=== PATIENT | female | born 1950 | race Caucasian/White ===

== ENCOUNTER 2023-11-12 18:25 | Emergency (ER) | payer MEDICARE, SELFPAY ==
[2023-11-12] VITALS (9 sets, daily range): BP systolic 176–209; BP diastolic 85–108; PULSE 60–73; RESP 16–22; TEMP 36.5–36.9; O2SAT 96–98; BMI 30.7
--- NOTE | 2023-11-12 18:34 | ECG_ITS ---
APPROVED REPORT Exam: Resting ECG HR:75 bpm ECG Measurements Heart Rate 75 AXES HI 149 P 53 QRSd 84 QRS 48 QT 396 T 58 QTc 425 Conclusion SINUS RHYTHM NORMAL ECG Electronically signed by : LUCERO ROCHE, 11/12/2023 23:51:59
--- NOTE | 2023-11-12 18:37 | CT_ITS ---
PROCEDURE INFORMATION: Exam: CT Head Without Contrast Exam date and time: 11/12/2023 6:55 PM Age: 73 years old Clinical indication: Pain; Headache; Additional info: Headache, severe HTN TECHNIQUE: Imaging protocol: Computed tomography of the head without contrast. Radiation optimization: All CT scans at this facility use at least one of these dose optimization techniques: automated exposure control; mA and/or kV adjustment per patient size (includes targeted exams where dose is matched to clinical indication); or iterative reconstruction. COMPARISON: No relevant prior studies available. FINDINGS: Brain: Age-related involutional changes and chronic microvascular ischemic disease. No evidence for acute transcortical infarct. No mass effect or midline shift. No extra-axial collection. No acute intracranial hemorrhage. Basal cisterns are patent. Cerebral ventricles: Right occipital chronic infarct resulting in ex vacuo dilatation of the right occipital horn. Paranasal sinuses: Visualized sinuses are unremarkable. No fluid levels. Mastoid air cells: Visualized mastoid air cells are well aerated. Bones: Unremarkable. No acute fracture. Soft tissues: Unremarkable. IMPRESSION: No hydrocephalus, acute intracranial hemorrhage, or mass effect.
--- NOTE | 2023-11-12 18:39 | PC.NURSE ---
dr asif at bedside
--- NOTE | 2023-11-12 18:43 | ED_ITS ---
Discharge Plan Disposition Patient Disposition: Home, Self-Care Condition: Good Prescriptions Prescriptions: New hydrochlorothiazide 25 mg tablet 25 mg PO DAILY Qty: 30 1RF No Action atorvastatin 80 mg tablet 80 mg PO DAILY Patient Comments: TAKE 1 TABLET BY MOUTH ONCE DAILY clonidine HCl 0.1 mg tablet 0.1 mg PO DIRECTED Patient Comments: TAKE 1 TABLET BY MOUTH ONCE DAILY clopidogrel 75 mg tablet 75 mg PO DAILY Patient Comments: TAKE 1 TABLET BY MOUTH ONCE DAILY acyclovir 400 mg tablet 400 mg PO BID Patient Comments: TAKE 1 TABLET BY MOUTH TWICE DAILY valsartan 320 mg tablet 320 mg PO DAILY Patient Comments: TAKE 1 TABLET BY MOUTH ONCE DAILY folic acid 1 mg tablet 1 mg PO DAILY Patient Comments: TAKE 1 TABLET BY MOUTH ONCE DAILY montelukast 10 mg tablet 10 mg PO DAILY Patient Comments: TAKE 1 TABLET BY MOUTH ONCE DAILY IN THE EVENING clobetasol 0.05 % ointment 1 applic TOPICAL BID Patient Comments: APPLY OINTMENT TOPICALLY TO AFFECTED AREA TWICE DAILY FOR UP TO 2 WEEKS WHEN ITCHING. STOP FOR 1 WEEK. REPEAT NEEDED WHEN ITCHY albuterol sulfate 90 mcg/actuation HFA aerosol inhaler 1 - 2 puff INHALATION Q4-6H PRN (Reason: SOA, wheezing) Patient Comments: INHALE 1 TO 2 PUFFS BY MOUTH EVERY 4 TO 6 HOURS venlafaxine 225 mg tablet extended release 24hr 225 mg PO DAILY Patient Comments: TAKE 1 TABLET BY MOUTH DAILY Vraylar 1.5 mg capsule 1.5 mg PO DAILY Patient Comments: TAKE 1 CAPSULE BY MOUTH ONCE DAILY Referrals Follow up/Referrals: Eulogio Benson MD [Staff Physician] - See instructions ProviderTin MD [Referring] - See instructions Activity Restrictions/Add. Instructions Additional Instructions/Restrictions: You were evaluated in the emergency department today. Please spanish moss picker your prescription for medication and take in addition to your valsartan at home. Follow-up closely with your primary care provider. I am also putting in information for cardiology if you wish to follow-up with them for further management of your blood pressure. Please call their office to make an appointment. Return to the emergency department for new or worsening symptoms Clinical Impressions Clinical Impression: Hypertensive urgency Instructions Patient Instructions: DI for High Blood Pressure Print Language Print Language: Italian Discharge ED Provider: Johanna Delgado General Adult HPI General Chief complaint: Recheck/Abnormal Lab/Rx Stated complaint: High blood pressure Time Seen by Provider: 11/12/23 18:29 History of Present Illness HPI narrative: This patient is a 73-year-old female with a history of hypertension and prior posterior CVA presenting to the emergency department for evaluation with concern for high blood pressure. Patient is on losartan and has clonidine as needed at home for blood pressure, but despite compliance with medications, her blood pressures continue to be elevated. Systolics have been greater than 200 at home. Prior to 545/5:50 PM, she had taken 3 doses of her 0.1 mg clonidine without good improvement in her blood pressure. She states that she has noticed that it is higher over the last couple of weeks, and she is even called EMS to come out and check it 3 times in the last week. She has had a mild headache associated with this, but no visual disturbances, numbness, tingling, or other concerns. She has had no chest pain, back pain, abdominal pain, or other issues. She follows with a physician in [place]. Related Data Home Medications ?Medication ?Instructions ?Recorded ?Confirmed acyclovir 400 mg tablet 400 mg PO BID 11/12/23 11/12/23 albuterol sulfate 90 mcg/actuation 1 - 2 puff inhalation Q4-6H PRN 11/12/23 11/12/23 aerosol inhaler SOA, wheezing atorvastatin 80 mg tablet 80 mg PO DAILY 11/12/23 11/12/23 cariprazine 1.5 mg capsule 1.5 mg PO DAILY 11/12/23 11/12/23 (Vraylar) clobetasol 0.05 % topical ointment 1 applic topical BID 11/12/23 11/12/23 clonidine HCl 0.1 mg tablet 0.1 mg PO DIRECTED 11/12/23 11/12/23 clopidogrel 75 mg tablet 75 mg PO DAILY 11/12/23 11/12/23 folic acid 1 mg tablet 1 mg PO DAILY 11/12/23 11/12/23 montelukast 10 mg tablet 10 mg PO DAILY 11/12/23 11/12/23 valsartan 320 mg tablet 320 mg PO DAILY 11/12/23 11/12/23 venlafaxine 225 mg tablet,extended 225 mg PO DAILY 11/12/23 11/12/23 release 24 hr Previous Rx's ?Medication ?Instructions ?Recorded hydrochlorothiazide 25 mg tablet 25 mg PO DAILY #30 tabs 11/12/23 Allergies Allergy/AdvReac Type Severity Reaction Status Date / Time No Known Allergies Allergy Verified 11/12/23 18:45 [facility] Disclaimer: The information contained in this section may have been updated after the patient was seen, as this information can be updated by other users. Social History Smoking Status: Never smoker alcohol intake: never current occupational status: retired Travel in the last 8 weeks: None ROS Obtained: Yes All systems reviewed & no additional complaints except as documented Physical Exam General General appearance: alert and in no apparent distress Head Head exam: atraumatic and normocephalic Eye Eye exam: Present normal appearance, PERRL and EOMI ENT ENT exam: Present normal exam, normal oropharynx, mucous membranes moist and normal external ear exam Neck Neck exam: Present normal inspection, full ROM and trachea midline; Absent tenderness Chest Chest inspection: Present normal inspection and symmetric chest wall rise; Absent tenderness Respiratory Respiratory exam: Present normal lung sounds bilaterally; Absent respiratory distress, wheezes, stridor or accessory muscle use Cardiovascular Cardiovascular exam: Present regular rate and normal rhythm Abdominal Exam Abdominal exam: Present soft; Absent distention, tenderness or guarding Extremities Exam Extremities exam: Present normal inspection, full ROM and normal capillary refill; Absent tenderness or edema Back Exam Back exam: Present normal inspection and full ROM; Absent tenderness Neurological Exam Neurological exam: Present alert, oriented X3, CN II-XII intact and normal gait; Absent motor sensory deficit Psychiatric Psychiatric exam: Present normal affect and normal mood Skin Skin exam: Present warm and dry Medical Decision Making Medical Records Medical records reviewed: Yes I reviewed the patient's medical records. Ronny Inquiry Pt receiving controlled substance: No Vital Signs: 11/12/23 18:27 11/12/23 19:02 11/12/23 19:23 Temperature 97.7 F Temperature Source Oral Pulse Rate 73 68 Pulse Rate [Right] 70 Respiratory Rate 19 17 17 Blood Pressure 209/100 H 203/94 H Blood Pressure [Right Arm] 209/97 H Blood Pressure Mean 130 130 Blood Pressure Mean [Right Arm] 134 Blood Pressure Source Blood Pressure Source [Right Arm] Automatic Cuff Blood Pressure Position 02 Sat by Pulse Oximetry 97 98 97 Oxygen Delivery Method Room Air Room Air Room Air 11/12/23 19:31 11/12/23 19:46 11/12/23 20:01 Temperature Temperature Source Pulse Rate 69 69 65 Pulse Rate [Right] Respiratory Rate 17 20 16 Blood Pressure 185/87 H 177/108 H 187/90 H Blood Pressure [Right Arm] Blood Pressure Mean 119 131 122 Blood Pressure Mean [Right Arm] Blood Pressure Source Blood Pressure Source [Right Arm] Blood Pressure Position 02 Sat by Pulse Oximetry 96 97 97 Oxygen Delivery Method Room Air Room Air Room Air 11/12/23 20:15 11/12/23 20:30 11/12/23 20:50 Temperature 98.4 F Temperature Source Oral Pulse Rate 65 60 62 Pulse Rate [Right] Respiratory Rate 22 16 16 Blood Pressure 190/88 H 178/85 H 176/92 H Blood Pressure [Right Arm] Blood Pressure Mean 122 116 Blood Pressure Mean [Right Arm] Blood Pressure Source Automatic Cuff Blood Pressure Source [Right Arm] Blood Pressure Position Sitting 02 Sat by Pulse Oximetry 96 97 Oxygen Delivery Method Room Air Room Air Room Air Lab Data Lab results reviewed: Yes I reviewed the patient's lab results. Lab Results 11/12/23 18:37: WBC 7.3, RBC 4.18 L, Hgb 12.3, Hct 39.9, MCV 95.4, MCH 29.4, M CHC 30.9 L, RDW 13.9, Plt Count 326, MPV 8.4, Neut % (Auto) 76.3, Lymph % (Auto) 15.7, Becker % (Auto) 3.9, Eos % (Auto) 3.3, Baso % (Auto) 0.7, Neut # (Auto) 5.6, Lymph # (Auto) 1.2, Becker # (Auto) 0.3, Eos # (Auto) 0.2, Baso # (Auto) 0.1, Sodium 141, Potassium 3.5, Chloride 105, Carbon Dioxide 32 H, Anion Gap 7.5, BUN 13, Creatinine 1.00, Estimated Creat Clear 67, Estimated GFR 55 L, Est GFR ( Amer) 66, Glucose 143 H, Calcium 8.7, Total Bilirubin 0.4, AST 30, ALT 35, Alkaline Phosphatase 93, Troponin I < 0.01, Total Protein 7.3, Albumin 4.0, Globulin 3.3 H, Albumin/Globulin Ratio 1.2 11/12/23 18:37 11/12/23 18:37 Orders (Tests/Meds): ED MEDICATIONS Discontinued Medications Generic Name Dose Route Start Last Admin Trade Name Osmin PRN Reason Stop Dose Admin Acetaminophen 1,000 mg 11/12/23 18:42 11/12/23 18:47 Acetaminophen 500mg Tab PO 11/12/23 18:43 1,000 mg ONCE ONE Administration Hydrochlorothiazide 12.5 mg 11/12/23 19:26 11/12/23 19:41 Hydrochlorothiazide 12.5mg Capsule PO 11/12/23 19:27 Not Given ONCE ONE Hydrochlorothiazide 25 mg 11/12/23 19:32 11/12/23 19:40 Hydrochlorothiazide 25mg Tablet PO 11/12/23 19:33 25 mg ONCE ONE Administration Ketorolac Tromethamine 15 mg 11/12/23 18:42 11/12/23 18:47 Ketorolac 30mg/Ml Vial IV 11/12/23 18:43 15 mg ONCE ONE Administration ORDERS Category Date Time Status CT head/brain wo con Stat Cat Scan 11/12/23 18:37 Completed Complete Blood Count Auto Diff Stat Lab 11/12/23 18:37 Completed Comprehensive Metabolic Panel Stat Lab 11/12/23 18:37 Completed Trop I [Troponin I] Stat Lab 11/12/23 18:37 Completed ECG Data Tracing #1: I reviewed this ECG and interpreted as documented below: Normal sinus rhythm with a ventricular rate of [address] changes concerning for ischemia. Normal axis and intervals. ECG initial impression date: 11/12/23 ECG initial impression time: 18:35 Medical Decision Narrative: In summary, this patient is a 73-year-old female presenting to the Emergency Department for evaluation of high blood pressure readings at home. Only other symptom is a mild headache with no other neurologic deficits. Differential diagnoses considered include but are not limited to hypertensive urgency, hypertensive emergency, CVA, NSTEMI, renal dysfunction, migraine, tension headache. Ruling out the most morbid conditions drove assessment. It should be noted patient's history includes hypertension which is not at goal therapy. This complicates all aspects of care by increasing patient's risk for morbidity. On exam, the patient is lying in bed in no acute distress and is neurologically intact. She has a blood pressure of 214 systolic over 98 on initial assessment, and then repeat pressure is 209/97. Otherwise, vitals are reassuring. No other concerns or complaints aside from mild headache. She has equal pulses bilaterally. Workup included CBC, CMP, troponin, EKG, CT head without contrast to evaluate for potential endorgan dysfunction. She was given IV Toradol and oral Tylenol for symptomatic improvement of her headache. I independently interpreted CT scan prior to the radiologist read and noted no obvious space occupying lesion. Please see their read for final interpretation. Labs were obtained that demonstrated no evidence of end organ dysfunction. Kidney function is normal. On reassessment, patient is persistently hypertensive. After shared decision making, decision was made to initiate hydrochlorothiazide. She was given 25 mg here, which she tolerated well with improvement in her blood pressure to the 180s. At this time, I feel that she is appropriate for discharge with continued treatment with hydralazine in addition to her valsartan. She was given instructions for close follow-up with primary care provider and strict return precautions. She was discharged after all questions were answered. I considered admission for hypertensive urgency, however given absence of end organ dysfunction, I do not feel this is indicated. Critical Care Critical Care Time Critical Care Time: No
[2023-11-12 18:46] LABS: Basophils # 0.1 K/mm3 (0-0.2); Basophils % 0.7 % (0.1-2.0); Eosinophils # 0.2 K/mm3 (0.0-0.4); Eosinophils % 3.3 % (0.1-12.0); Hematocrit 39.9 % (37.0-47.0); Hemoglobin 12.3 g/dL (12.2-16.2); Lymphocytes # 1.2 K/mm3 (0.7-4.5); Lymphocytes % 15.7 % (10-50); Mean Corpuscular HGB Conc 30.9 g/dL (31.8-35.4); Mean Corpuscular Hemoglobin 29.4 pg (27.0-31.2); Mean Corpuscular Volume 95.4 fl (81-99); Mean Platelet Volume 8.4 fl (7.4-10.4); Monocytes # 0.3 K/mm3 (0.1-1.0); Monocytes % 3.9 % (1.7-9.3); Neutrophils # 5.6 K/mm3 (1.8-7.8); Neutrophils % 76.3 % (37.0-80.0); Platelet Count 326 K/mm3 (142-424); Red Blood Count 4.18 M/mm3 (4.20-5.40); Red Cell Distribution Width 13.9 % (11.5-17.5); White Blood Count 7.3 K/mm3 (4.8-10.8)
[2023-11-12] MEDS: ACETAMINOPHEN 500MG TAB 1000 MG PO (18:47)
[2023-11-12] MEDS: KETOROLAC 30MG/ML VIAL 15 MG IV (18:47)
[2023-11-12 18:50] LABS: Chloride 105 mmol/L (98-107); Potassium 3.5 mmoL/L (3.5-5.1); Sodium 141 mmol/L (136-145)
--- NOTE | 2023-11-12 18:51 | PC.NURSE ---
pt transported to radiology via wheelchair.
[2023-11-12 18:53] LABS: Alanine Aminotransferase 35 U/L (12-78); Albumin/Globulin Ratio 1.2 (1.1-1.8); Alkaline Phosphatase 93 U/L (38-126); Anion Gap 7.5 mEq/L (5-15); Aspartate Amino Transferase 30 U/L (14-36); Bilirubin,Total 0.4 mg/dl (0.2-1.3); Blood Urea Nitrogen 13 mg/dl (7-17); Calcium 8.7 mg/dl (8.4-10.2); Carbon Dioxide 32 mmol/L (22.0-30.0); Creatinine Clearance Estimated 67 mL/min (50-200); Estimated Glomerular Filt Rate 55 ml/min (>60); GFR (African American) 66 ML/MIN (>60); Globulin 3.3 g/dL (1.3-3.2); Glucose 143 mg/dl (74-100); Total Protein,Serum 7.3 g/dl (6.3-8.2)
--- NOTE | 2023-11-12 19:08 | PC.NURSE ---
Report from PARKER Morris
[2023-11-12 19:18] LABS: Troponin I < 0.01 ng/ml (0.00-0.034)
[2023-11-12] MEDS: hydroCHLOROthiazide 25MG TABLET 25 MG PO (19:40)
--- NOTE | 2023-11-12 20:44 | PC.NURSE ---
Updated attending regarding trending BP's. Patient rounded on and no needs verbalized
== END 2023-11-12 20:54 | disposition home or self-care (01) ==
PROVIDERS: Emergency Provider Emergency Medicine; PCP Family Medicine
DX: I16.0 Hypertensive urgency (principal); I10 Essential (primary) hypertension; R51.9 Headache, unspecified; Z86.73 Personal history of transient ischemic attack (TIA), and cerebral infarction without residual deficits
CPT/HCPCS: 70450; 80053; 84484; 85025; 93005; 96374; 99285; J1885

== ENCOUNTER 2024-02-17 08:17 | Emergency (ER) | payer MEDICARE, SELFPAY ==
[2024-02-17] VITALS (9 sets, daily range): BP systolic 150–177; BP diastolic 65–90; PULSE 63–72; RESP 16–18; TEMP 36.5–36.7; O2SAT 93–98; BMI 31.6
--- NOTE | 2024-02-17 08:23 | ECG_ITS ---
APPROVED REPORT Exam: Resting ECG HR:63 bpm ECG Measurements Heart Rate 63 AXES UT 139 P 45 QRSd 88 QRS 42 QT 421 T 55 QTc 429 Conclusion SINUS RHYTHM LOW QRS VOLTAGE IN PRECORDIAL LEADS [QRS DEFLECTION < 1.0 mV IN CHEST LEADS] No STEMI Electronically signed by : TAI MEDEROS, 02/17/2024 15:34:07
--- NOTE | 2024-02-17 08:29 | XR_ITS ---
PROCEDURE INFORMATION: Exam: XR Chest Exam date and time: 02/17/2024 8:39 AM Age: 73 years old Clinical indication: Pain; On breathing; Additional info: Upper chest/back pain TECHNIQUE: Imaging protocol: Radiologic exam of the chest. Views: 1 view. COMPARISON: No relevant prior studies available. FINDINGS: Lungs: Unremarkable. No consolidation. Pleural spaces: Unremarkable. No pleural effusion. No pneumothorax. Heart/Mediastinum: Unremarkable. No cardiomegaly. Bones/joints: Unremarkable. IMPRESSION: No acute findings.
--- NOTE | 2024-02-17 08:31 | ED_ITS ---
Discharge Plan Disposition Patient Disposition: Home, Self-Care Condition: Good Prescriptions Prescriptions: No Action carvedilol 6.25 mg tablet 6.25 mg PO BID Rx Instructions: must administer with a meal/food budesonide-formoterol 160-4.5 mcg/actuation HFA aerosol inhaler 2 puff inhalation BID 90 Days Qty: 10.2 2RF atorvastatin 80 mg tablet 80 mg PO DAILY Patient Comments: TAKE 1 TABLET BY MOUTH ONCE DAILY clonidine HCl 0.1 mg tablet 0.1 mg PO DIRECTED Patient Comments: TAKE 1 TABLET BY MOUTH ONCE DAILY clopidogrel 75 mg tablet 75 mg PO DAILY Patient Comments: TAKE 1 TABLET BY MOUTH ONCE DAILY acyclovir 400 mg tablet 400 mg PO BID Patient Comments: TAKE 1 TABLET BY MOUTH TWICE DAILY valsartan 320 mg tablet 320 mg PO DAILY Patient Comments: TAKE 1 TABLET BY MOUTH ONCE DAILY folic acid 1 mg tablet 1 mg PO DAILY Patient Comments: TAKE 1 TABLET BY MOUTH ONCE DAILY montelukast 10 mg tablet 10 mg PO DAILY Patient Comments: TAKE 1 TABLET BY MOUTH ONCE DAILY IN THE EVENING clobetasol 0.05 % ointment 1 applic TOPICAL BID Patient Comments: APPLY OINTMENT TOPICALLY TO AFFECTED AREA TWICE DAILY FOR UP TO 2 WEEKS WHEN ITCHING. STOP FOR 1 WEEK. REPEAT NEEDED WHEN ITCHY albuterol sulfate 90 mcg/actuation HFA aerosol inhaler 1 - 2 puff INHALATION Q4-6H PRN (Reason: SOA, wheezing) Patient Comments: INHALE 1 TO 2 PUFFS BY MOUTH EVERY 4 TO 6 HOURS venlafaxine 225 mg tablet extended release 24hr 225 mg PO DAILY Patient Comments: TAKE 1 TABLET BY MOUTH DAILY Vraylar 1.5 mg capsule 1.5 mg PO DAILY Patient Comments: TAKE 1 CAPSULE BY MOUTH ONCE DAILY Referrals Follow up/Referrals: Donna Cohen [Primary Care Provider] - See instructions Activity Restrictions/Add. Instructions Additional Instructions/Restrictions: You were evaluated in the ER and are appropriate for discharge at this time. Continue your home medications as prescribed. Make an appointment with your primary care doctor for reevaluation in 2 to 3 days. Please call your hand mold maker and discuss your visit to the ER today with them as well. Return to the ER with new, worsening, or otherwise concerning symptoms. Clinical Impressions Clinical Impression: Upper back pain, Generalized weakness Print Language Print Language: Guyanese Discharge ED Provider: Brown,Mikalah HPI General Chief Complaint: Weakness Stated Complaint: weakness, pain shoulder to shoulder Time Seen by Provider: 02/17/24 08:21 History of Present Illness HPI narrative: 73-year-old female with a history of COPD, hypertension, CAD presents to the ER with complaints of upper back pain radiating down both arms as well as nausea. Symptoms started approximately 1 to 2 hours prior to arrival. Patient reports she was laying in bed when she started having an aching/cramping sensation across her upper back. She denies the pain changing with neck movements, no recent injuries. She denies fevers, congestion, vomiting, diarrhea, or abdominal pain. She denies pain in the chest or difficulty breathing. Patient reports she feels generally weak but does not have any other specific symptoms. The nausea also onset at the same time as her upper back pain. She does not describe it as tearing or sharp pain. Patient was started on isosorbide mononitrate yesterday and has only taken 1 dose of this medication. She reports she had a very mild headache with that which she was told to expect and has since that time resolved. Patient reports not taking any of her morning medications yet. Related Data Home Medications ?Medication ?Instructions ?Recorded ?Confirmed acyclovir 400 mg tablet 400 mg PO BID 11/12/23 02/09/24 albuterol sulfate 90 mcg/actuation 1 - 2 puff inhalation Q4-6H PRN 11/12/23 02/09/24 aerosol inhaler SOA, wheezing atorvastatin 80 mg tablet 80 mg PO DAILY 11/12/23 02/09/24 cariprazine 1.5 mg capsule 1.5 mg PO DAILY 11/12/23 02/09/24 (Sruthi) clobetasol 0.05 % topical ointment 1 applic topical BID 11/12/23 02/09/24 clonidine HCl 0.1 mg tablet 0.1 mg PO DIRECTED 11/12/23 02/09/24 clopidogrel 75 mg tablet 75 mg PO DAILY 11/12/23 02/09/24 folic acid 1 mg tablet 1 mg PO DAILY 11/12/23 02/09/24 montelukast 10 mg tablet 10 mg PO DAILY 11/12/23 02/09/24 valsartan 320 mg tablet 320 mg PO DAILY 11/12/23 02/09/24 venlafaxine 225 mg tablet,extended 225 mg PO DAILY 11/12/23 02/09/24 release 24 hr carvedilol 6.25 mg tablet 6.25 mg PO BID 02/09/24 02/09/24 Previous Rx's ?Medication ?Instructions ?Recorded budesonide-formoterol HFA 160 2 puff inhalation BID 90 days 02/09/24 mcg-4.5 mcg/actuation aerosol #10.2 grams inhaler Allergies Allergy/AdvReac Type Severity Reaction Status Date / Time No Known Allergies Allergy Verified 02/09/24 14:21 [facility] Disclaimer: The information contained in this section may have been updated after the patient was seen, as this information can be updated by other users. Medical History (Updated 02/17/24 @ 11:53 by Pj Brown MD) History of 2019 novel coronavirus disease (COVID-19) Fatigue Wheezing without diagnosis of asthma Dyspnea on exertion Surgical History (Updated 02/09/24 @ 14:23 by Kenia Pride) No history of previous surgery Family History Other Thyroid disorder Social History Smoking Status: Never smoker alcohol intake: never current occupational status: retired Travel in the last 8 weeks: None Other Medical History Have you received the Pneumonia Vaccine: Yes ROS Obtained: Yes Systems reviewed as appropriate & no additional complaints except as documented Constitutional Constitutional: Denies chills, Denies fever(s), Denies headache(s) and Reports weakness (Generalized) Eyes Eyes: Denies change in vision ENT Ears, Nose, Mouth, and Throat: Denies dizziness, Denies headache(s), Denies nasal congestion and Denies sore throat Cardiovascular Cardiovascular: Denies chest pain, Denies dyspnea and Denies leg edema Respiratory Respiratory: Reports cough (Chronic, unchanged) and Denies dyspnea Gastrointestinal Gastrointestingal: Reports nausea; Denies constipation, diarrhea or vomiting Genitourinary Female Genitourinary: Denies dysuria Musculoskeletal Musculoskeletal: Denies arthralgias, Reports back pain, Reports myalgias, Denies numbness and Denies tingling Integumentary/Breasts Skin/Breast: Denies change in pigmentation Neurologic Neurologic: Denies dizziness, Denies headache(s), Denies numbness, Denies tingling and Reports weakness (Generalized) Physical Exam General General appearance: alert, in no apparent distress and obese Head Head exam: atraumatic and normocephalic Eye Eye exam: Present PERRL and EOMI ENT ENT exam: Present mucous membranes moist Neck Neck exam: Present normal inspection and full ROM; Absent tenderness (No midline cervical spine discomfort) Chest Chest inspection: Present symmetric chest wall rise Respiratory Respiratory exam: Present normal lung sounds bilaterally; Absent respiratory distress, wheezes or stridor Cardiovascular Cardiovascular exam: Present regular rate and normal rhythm Abdominal Exam Abdominal exam: Present soft; Absent distention or tenderness Extremities Exam Extremities exam: Present full ROM; Absent edema Back Exam Back exam: Present full ROM and tenderness (Tenderness across the muscles of the upper back including the trapezius bilaterally without obvious spasm, no findings of injury, no midline vertebral tenderness) Neurological Exam Neurological exam: Present alert, oriented X3 and CN II-XII intact; Absent motor sensory deficit Psychiatric Psychiatric exam: Present normal affect and normal mood Skin Skin exam: Present warm and dry HEART Score HEART Score HEART Score assessment performed?: Yes History (anamnesis): Slightly suspicious ECG: Non-specific disturbance Age: >65 years Risk factors: Atherosclerosis history Troponin: </= normal limit HEART Score: 5 Critical Care Critical Care Time Critical Care Time: No Medical Decision Making Medical Records Medical records reviewed: Yes I reviewed the patient's medical records. MR Comment: Review of most recent pulmonology note from 02/09/2024 patient was evaluated for persistent dyspnea on exertion with plans for PFT and walk test. Ronny Inquiry Pt receiving controlled substance: No Vital Signs Vital Signs: 02/17/24 08:17 02/17/24 08:22 02/17/24 08:30 Temperature 97.7 F Temperature Source Oral Pulse Rate 72 63 Pulse Rate [Left Radial] 67 Respiratory Rate 16 Blood Pressure 177/90 H 167/81 H Blood Pressure [Right Arm] 167/81 H Blood Pressure Mean Blood Pressure Mean [Right Arm] 109 02 Sat by Pulse Oximetry 97 98 96 Oxygen Delivery Method Room Air Room Air Room Air 02/17/24 09:00 02/17/24 09:30 02/17/24 10:00 Temperature Temperature Source Pulse Rate 69 66 69 Pulse Rate [Left Radial] Respiratory Rate Blood Pressure 152/84 H 159/76 H 152/72 H Blood Pressure [Right Arm] Blood Pressure Mean 127 101 Blood Pressure Mean [Right Arm] 02 Sat by Pulse Oximetry 95 93 L 95 Oxygen Delivery Method Room Air 02/17/24 10:30 02/17/24 11:00 Temperature Temperature Source Pulse Rate 64 67 Pulse Rate [Left Radial] Respiratory Rate Blood Pressure 150/65 H 162/77 H Blood Pressure [Right Arm] Blood Pressure Mean 99 Blood Pressure Mean [Right Arm] 02 Sat by Pulse Oximetry 97 96 Oxygen Delivery Method Room Air Lab Data Labs: Lab Results 02/17/24 08:24: WBC 9.5, RBC 3.77 L, Hgb 11.3 L, Hct 34.1 L, MCV 90.4, MCH 30.0, MCHC 33.2, RDW 14.6, Plt Count 321, MPV 8.1, Neut % (Auto) 75.3, Lymph % (Auto) 16.8, Wilcox % (Auto) 4.4, Eos % (Auto) 2.6, Baso % (Auto) 0.8, Neut # (Auto) 7.2, Lymph # (Auto) 1.6, Wilcox # (Auto) 0.4, Eos # (Auto) 0.2, Baso # (Auto) 0.1, PT 9.8 L, INR 0.86 L, D-Dimer 0.27, Sodium 141, Potassium 3.7, Chloride 107, Carbon Dioxide 27, Anion Gap 10.7, BUN 19 H, Creatinine 1.20 H, Estimated GFR 44 L, Est GFR ( Amer) 53 L, Glucose 126 H, Calcium 8.4, Total Bilirubin 0.4, AST 28, ALT 25, Alkaline Phosphatase 76, Troponin I < 0.01, Total Protein 6.8, Albumin 3.8, Globulin 3.0, Albumin/Globulin Ratio 1.3, SARS-CoV-2 (PCR) Not detected, Influenza A Untype (PCR) Not detected, Influenza Type B (PCR) Not detected 02/17/24 11:06: Troponin I < 0.01 02/17/24 08:24 02/17/24 08:24 Response Orders (Tests/Meds): ED MEDICATIONS Generic Name Dose Route Start Last Admin Trade Name Freq PRN Reason Stop Dose Admin Methocarbamol 250 mg 02/17/24 09:00 02/17/24 08:42 Methocarbamol 500mg Tablet PO 03/18/24 08:59 250 mg BID JOSE Administration Discontinued Medications Generic Name Dose Route Start Last Admin Trade Name Osmin PRN Reason Stop Dose Admin Albuterol/Ipratropium 3 ml 02/17/24 08:37 02/17/24 08:42 Ipratropium/Albuterol 3 Ml Neb IH 02/17/24 08:38 3 ml ONCE ONE Administration Ketorolac Tromethamine 15 mg 02/17/24 08:29 02/17/24 08:41 Ketorolac 30mg/Ml Vial IV 02/17/24 08:30 15 mg ONCE ONE Administration ORDERS Category Date Time Status CXR --portable [XR chest portable] Stat Exams 02/17/24 08:29 Completed CBC w/Auto Diff [Complete Blood Count Auto Diff] Stat Lab 02/17/24 08:24 Completed CMP [Comprehensive Metabolic Panel] Stat Lab 02/17/24 08:24 Completed D-Dimer Stat Lab 02/17/24 08:24 Completed HIV (1&2) Antibody Rapid Stat Lab 02/17/24 08:24 Received Hep C Ab with Reflex to RNA Stat Lab 02/17/24 08:24 Received PT INR [Prothrombin Time INR] Stat Lab 02/17/24 08:24 Completed Rapid PCR Covid and Flu A/B Stat Lab 02/17/24 08:24 Completed Trop I [Troponin I] Stat Lab 02/17/24 08:24 Completed Troponin I Q3H Lab 02/17/24 11:06 Completed Troponin I Q3H Lab 02/17/24 14:30 Ordered MDM Narrative Medical Decision Narrative: In summary, this 73-year-old female with comorbidities as described in HPI presents to the emergency department today with upper back pain radiating down the arms bilaterally, associated nausea, generalized weakness. On initial evaluation patient is hemodynamically stable, afebrile, overall cardiopulmonary exam is reassuring and benign, patient is nonacute abdomen, lungs clear bilaterally, GCS 15 with no neurologic deficits, patient has tenderness of the muscles across the upper back with reproducible pain but no obvious spasm, no findings of trauma. Differential diagnosis includes but is not limited to atypical presentation of ACS, PE, I considered the possibility of dissection but have no indication of this since patient has no neurologic deficits, no tearing sensation, pulses are equal bilaterally, and she describes her pain as a dull ache which would be atypical of dissection, I considered viral syndrome, pneumonia, patient reports COPD and I considered exacerbation of this though I have lower suspicion since she has good oxygen saturation and no wheezing, muscle spasm, electrolyte abnormality. Based on these concerns, I ordered serum labs, cardiac workup, D-dimer, viral swab, chest x-ray. ECG personally interpreted demonstrates normal sinus rhythm, rate 63, normal axis, normal [place] and QTc, no STEMI. Patient received Toradol, low-dose methocarbamol for treatment. Labs personally reviewed demonstrate no leukocytosis, mild anemia, PT/INR nonactionable, D-dimer reassuring at 0.27, no CTA PE indicated, CMP nonactionable, COVID/flu negative. Initial troponin undetectably low less than 0.01, patient was placed into ED observation for serial troponins to rule out for evolving SD include unnecessary admission XR personally interpreted demonstrates no acute intrathoracic abnormality, see radiology read for final interpretation. Patient continue to be monitored and did not have any recurrence of symptoms. On frequent reassessment she stated she was improving, on final reassessment she stated her symptoms were completely absent. She is resting comfortably, repeat troponin also undetectably low at less than 0.01. Patient is appropriate for discharge at this time. Patient was given instructions on symptomatic management, follow up instructions, and return precautions for the emergency department. Patient indicated understanding and was discharged in stable condition. Total time in ED observation: 2 hours
[2024-02-17 08:35] LABS: Coronavirus 19, PCR Not Detected (NotDetected); Influenza A, PCR Not Detected (NotDetected); Influenza B, PCR Not Detected (NotDetected)
[2024-02-17] MEDS: KETOROLAC 30MG/ML VIAL 15 MG IV (08:41)
[2024-02-17 08:42] LABS: Albumin Level 3.8 g/dl (3.5-5.0); Chloride 107 mmol/L (98-107); Potassium 3.7 mmoL/L (3.5-5.1); Sodium 141 mmol/L (136-145)
[2024-02-17] MEDS: IPRATROPIUM/ALBUTEROL 3 ML NEB IH (08:42)
[2024-02-17] MEDS: METHOCARBAMOL 500MG TABLET 250 MG PO (08:42)
[2024-02-17 08:44] LABS: Basophils # 0.1 K/mm3 (0-0.2); Basophils % 0.8 % (0.1-2.0); Eosinophils # 0.2 K/mm3 (0.0-0.4); Eosinophils % 2.6 % (0.1-12.0); Hematocrit 34.1 % (37.0-47.0); Hemoglobin 11.3 g/dL (12.2-16.2); Lymphocytes # 1.6 K/mm3 (0.7-4.5); Lymphocytes % 16.8 % (10-50); Mean Corpuscular HGB Conc 33.2 g/dL (31.8-35.4); Mean Corpuscular Volume 90.4 fl (81-99); Mean Platelet Volume 8.1 fl (7.4-10.4); Monocytes # 0.4 K/mm3 (0.1-1.0); Monocytes % 4.4 % (1.7-9.3); Neutrophils # 7.2 K/mm3 (1.8-7.8); Neutrophils % 75.3 % (37.0-80.0); Platelet Count 321 K/mm3 (142-424); Red Blood Count 3.77 M/mm3 (4.20-5.40); Red Cell Distribution Width 14.6 % (11.5-17.5); White Blood Count 9.5 K/mm3 (4.8-10.8)
[2024-02-17 08:45] LABS: Alanine Aminotransferase 25 U/L (12-78); Albumin/Globulin Ratio 1.3 (1.1-1.8); Alkaline Phosphatase 76 U/L (38-126); Anion Gap 10.7 mEq/L (5-15); Aspartate Amino Transferase 28 U/L (14-36); Bilirubin,Total 0.4 mg/dl (0.2-1.3); Blood Urea Nitrogen 19 mg/dl (7-17); Calcium 8.4 mg/dl (8.4-10.2); Carbon Dioxide 27 mmol/L (22.0-30.0); Estimated Glomerular Filt Rate 44 ml/min (>60); GFR (African American) 53 ML/MIN (>60); Glucose 126 mg/dl (74-100); Total Protein,Serum 6.8 g/dl (6.3-8.2)
[2024-02-17 08:49] LABS: INR 0.86 (0.9-1.1); Prothrombin Time 9.8 seconds (10.1-12.5)
[2024-02-17 08:59] LABS: Troponin I < 0.01 ng/ml (0.00-0.034)
[2024-02-17 09:13] LABS: D-Dimer 0.27 ug/mL (0.0-0.5)
[2024-02-17 11:37] LABS: Troponin I < 0.01 ng/ml (0.00-0.034)
[2024-02-17 12:58] LABS: HIV (1&2) Antibody Rapid NONREACTIVE (NONREACTIVE)
[2024-02-18 06:16] LABS: HCV Ab Non Reactive (Non Reactive)
== END 2024-02-17 12:00 | disposition home or self-care (01) ==
PROVIDERS: Emergency Provider Emergency Medicine; PCP Family Medicine
DX: R53.1 Weakness (principal); M54.9 Dorsalgia, unspecified; M25.511 Pain in right shoulder; M25.512 Pain in left shoulder; R11.0 Nausea; R51.9 Headache, unspecified
CPT/HCPCS: 71045; 80053; 84484; 85025; 85378; 85610; 86803; 87389; 87636; 93005; 96374; 99284; J1885; J7620

== ENCOUNTER 2024-06-15 17:24 | Emergency (ER) | payer MEDICARE, SELFPAY ==
--- NOTE | 2024-06-15 17:40 | ECG_ITS ---
APPROVED REPORT Exam: Resting ECG HR:67 bpm ECG Measurements Heart Rate 67 AXES VT 135 P 37 QRSd 94 QRS 37 QT 410 T 34 QTc 425 Conclusion SINUS RHYTHM LOW QRS VOLTAGE IN PRECORDIAL LEADS [QRS DEFLECTION < 1.0 mV IN CHEST LEADS] NONSPECIFIC T-WAVE ABNORMALITY BORDERLINE ECG UNCONFIRMED REPORT Electronically signed by : RENAE BANEGAS, 06/16/2024 05:52:38
[2024-06-15 17:43] VITALS: BP 171/88; PULSE 78; RESP 18; TEMP 36.6; O2SAT 98; BMI 30.9
--- NOTE | 2024-06-15 17:53 | HMH.EDGENADL ---
Discharge Plan Disposition Patient Disposition: Home, Self-Care Condition: Good Prescriptions Prescriptions: New promethazine 25 mg tablet 25 mg PO Q6H PRN (Reason: nausea and vomiting) Qty: 14 0RF No Action carvedilol 6.25 mg tablet 6.25 mg PO BID Rx Instructions: must administer with a meal/food budesonide-formoterol 160-4.5 mcg/actuation HFA aerosol inhaler 2 puff inhalation BID 90 Days Qty: 10.2 2RF atorvastatin 80 mg tablet 80 mg PO DAILY Patient Comments: TAKE 1 TABLET BY MOUTH ONCE DAILY clonidine HCl 0.1 mg tablet 0.1 mg PO DIRECTED Patient Comments: TAKE 1 TABLET BY MOUTH ONCE DAILY clopidogrel 75 mg tablet 75 mg PO DAILY Patient Comments: TAKE 1 TABLET BY MOUTH ONCE DAILY acyclovir 400 mg tablet 400 mg PO BID Patient Comments: TAKE 1 TABLET BY MOUTH TWICE DAILY valsartan 320 mg tablet 320 mg PO DAILY Patient Comments: TAKE 1 TABLET BY MOUTH ONCE DAILY folic acid 1 mg tablet 1 mg PO DAILY Patient Comments: TAKE 1 TABLET BY MOUTH ONCE DAILY montelukast 10 mg tablet 10 mg PO DAILY Patient Comments: TAKE 1 TABLET BY MOUTH ONCE DAILY IN THE EVENING clobetasol 0.05 % ointment 1 applic TOPICAL BID Patient Comments: APPLY OINTMENT TOPICALLY TO AFFECTED AREA TWICE DAILY FOR UP TO 2 WEEKS WHEN ITCHING. STOP FOR 1 WEEK. REPEAT NEEDED WHEN ITCHY albuterol sulfate 90 mcg/actuation HFA aerosol inhaler 1 - 2 puff INHALATION Q4-6H PRN (Reason: SOA, wheezing) Patient Comments: INHALE 1 TO 2 PUFFS BY MOUTH EVERY 4 TO 6 HOURS venlafaxine 225 mg tablet extended release 24hr 225 mg PO DAILY Patient Comments: TAKE 1 TABLET BY MOUTH DAILY Vraylar 1.5 mg capsule 1.5 mg PO DAILY Patient Comments: TAKE 1 CAPSULE BY MOUTH ONCE DAILY Referrals Follow up/Referrals: Donna Cohen [Primary Care Provider] - See instructions Activity Restrictions/Add. Instructions Additional Instructions/Restrictions: You were evaluated in the emergency department today. At this time, your labs are reassuring. Your stool panel is still pending. 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 Orally hydrate. Eat a bland diet until symptoms have resolved. Follow-up closely with primary care. Return to the emergency department for new or worsening symptoms Clinical Impressions Clinical Impression: Nausea, vomiting and diarrhea Instructions Patient Instructions: DI for Diarrhea and Traveler's Diarrhea -- Adult, DI for Nausea -- Adult Print Language Print Language: [place] Citizen Discharge ED Provider: Johanna Delgado General Adult HPI General Chief complaint: Nausea/Vomiting/Diarrhea Stated complaint: HBP, nausea, V/D, weak Time Seen by Provider: 06/15/24 17:29 History of Present Illness HPI narrative: This patient is a 74-year-old female with a history of hypertension presenting to the emergency department for evaluation with concern for nausea, vomiting, and diarrhea. Patient states that she started on Wegovy about a month ago and took her fourth dose . She notes that she always has GI upset with it, including nausea, vomiting, and diarrhea, however that typically resolves after about 2 days. This time, however, symptoms have been persisting for about 2-1/2 weeks. She denies localizable abdominal pain, only complains of abdominal cramping. Emesis is nonbloody nonbilious, diarrhea is nonbloody. No other concerns or complaints noted at this time. Related Data Home Medications ?Medication ?Instructions ?Recorded ?Confirmed acyclovir 400 mg tablet 400 mg PO BID 11/12/23 02/09/24 albuterol sulfate 90 mcg/actuation 1 - 2 puff inhalation Q4-6H PRN 11/12/23 02/09/24 aerosol inhaler SOA, wheezing atorvastatin 80 mg tablet 80 mg PO DAILY 11/12/23 02/09/24 cariprazine 1.5 mg capsule 1.5 mg PO DAILY 11/12/23 02/09/24 (Vraylar) clobetasol 0.05 % topical ointment 1 applic topical BID 11/12/23 02/09/24 clonidine HCl 0.1 mg tablet 0.1 mg PO DIRECTED 11/12/23 02/09/24 clopidogrel 75 mg tablet 75 mg PO DAILY 11/12/23 02/09/24 folic acid 1 mg tablet 1 mg PO DAILY 11/12/23 02/09/24 montelukast 10 mg tablet 10 mg PO DAILY 11/12/23 02/09/24 valsartan 320 mg tablet 320 mg PO DAILY 11/12/23 02/09/24 venlafaxine 225 mg tablet,extended 225 mg PO DAILY 11/12/23 02/09/24 release 24 hr carvedilol 6.25 mg tablet 6.25 mg PO BID 02/09/24 02/09/24 Previous Rx's ?Medication ?Instructions ?Recorded budesonide-formoterol HFA 160 2 puff inhalation BID 90 days 02/09/24 mcg-4.5 mcg/actuation aerosol #10.2 grams inhaler promethazine 25 mg tablet 25 mg PO Q6H PRN nausea and 06/15/24 vomiting #14 tabs Allergies Allergy/AdvReac Type Severity Reaction Status Date / Time No Known Allergies Allergy Verified 02/09/24 14:21 [facility] Disclaimer: The information contained in this section may have been updated after the patient was seen, as this information can be updated by other users. Medical History History of 2019 novel coronavirus disease (COVID-19) Fatigue Wheezing without diagnosis of asthma Dyspnea on exertion Surgical History No history of previous surgery Family History Other Thyroid disorder Social History Smoking Status: Never smoker alcohol intake: never current occupational status: retired Travel in the last 8 weeks: None Have you lived/traveled outside [place] in past 30 days?: No Contact w/someone who lives/traveled outside [place] past 30 days?: No Exposure to someone with infectious disease in past 14 days?: No Do you have a fever (greater than 100.4 F or 38 C)?: Yes Have you tested positive for COVID-19: No Exposed to someone with COVID-19 in past 14 days?: No Do you have a sore throat?: No Do you have a cough?: No Do you have any weakness?: Yes Do you have any diarrhea?: No Are you experiencing any unusual bleeding?: No Do you have any muscle aches/pain?: No Do you have any abdominal pain?: No Are you experiencing loss of taste or smell?: No Other Medical History Have you received the Pneumonia Vaccine: Yes ROS Obtained: Yes All systems reviewed & no additional complaints except as documented Physical Exam General General appearance: alert and in no apparent distress Head Head exam: atraumatic and normocephalic Eye Eye exam: Present normal appearance, PERRL and EOMI ENT ENT exam: Present normal exam, normal oropharynx, mucous membranes moist and normal external ear exam Neck Neck exam: Present normal inspection, full ROM and trachea midline; Absent tenderness Chest Chest inspection: Present normal inspection and symmetric chest wall rise; Absent tenderness Respiratory Respiratory exam: Present normal lung sounds bilaterally; Absent respiratory distress, wheezes, stridor or accessory muscle use Cardiovascular Cardiovascular exam: Present regular rate and normal rhythm Abdominal Exam Abdominal exam: Present soft; Absent distention, tenderness or guarding Extremities Exam Extremities exam: Present normal inspection, full ROM and normal capillary refill; Absent tenderness or edema Back Exam Back exam: Present normal inspection and full ROM; Absent tenderness Neurological Exam Neurological exam: Present alert, oriented X3, CN II-XII intact and normal gait; Absent motor sensory deficit Psychiatric Psychiatric exam: Present normal affect and normal mood Skin Skin exam: Present warm and dry Medical Decision Making Medical Records Medical records reviewed: Yes I reviewed the patient's medical records. Screening: Per USPSTF and CDC recommendations, given the prevalence of disease in our region, it is our hospital?s policy to screen for HIV and viral Hepatitis for all patients aged 18 and over and those with ongoing risk factors. Ronny Inquiry Pt receiving controlled substance: No Vital Signs: 06/15/24 17:43 06/15/24 18:01 06/15/24 18:30 Temperature 97.9 F Temperature Source Oral Pulse Rate 70 66 Pulse Rate [Left Radial] 78 Respiratory Rate 18 Blood Pressure 164/100 H 173/85 H Blood Pressure [Right Arm] 171/88 H Blood Pressure Mean 115 116 Blood Pressure Mean [Right Arm] 115 Blood Pressure Position 02 Sat by Pulse Oximetry 98 98 95 Oxygen Delivery Method Room Air 06/15/24 18:45 06/15/24 20:12 Temperature 98.1 F Temperature Source Pulse Rate 69 62 Pulse Rate [Left Radial] Respiratory Rate 18 Blood Pressure 173/85 H 171/88 H Blood Pressure [Right Arm] Blood Pressure Mean Blood Pressure Mean [Right Arm] Blood Pressure Position Sitting 02 Sat by Pulse Oximetry 96 Oxygen Delivery Method Room Air Room Air Lab Data Lab results reviewed: Yes I reviewed the patient's lab results. Lab Results 06/15/24 17:42: Stool Occult Blood Negative, Stl Aeromonas (PCR) Not detected, Stl C. cayetanensis PCR Not detected, Stool Rotavirus (PCR) Not detected, Stl Adenov F 40/41 PCR Not detected, Stool Astrovirus (PCR) Not detected, Stool Campylobacter PCR Not detected, Stl C.difficile Tox PCR Not detected, Stool Cryptosporidium PCR Not detected, Stl E.coli Shiga Tox PCR Not detected, Stool E coli O157 PCR Not detected, Stl Enterotoxigenic E PCR Not detected, Stool EPEC (PCR) Not detected, Stool EAEC (PCR) Not detected, Stl E. histolytica PCR Not detected, Stool Giardia Lamblia PCR Not detected, Stool Salmonella PCR Not detected, Stool Sapovirus (PCR) Not detected, Stl P. shigelloides PCR Not detected, Stl Shigella/EIEC PCR Not detected, St Y.enterocolitica PCR Not detected, Stool Vibrio (PCR) Not detected, Stl Vibrio cholerae PCR Not detected, Stl Norovirus GI/GII PCR Not detected 06/15/24 17:49: WBC 9.7, RBC 4.38, Hgb 12.5, Hct 39.6, MCV 90.4, MCH 28.5, MCHC 31.6 L, RDW 12.7, Plt Count 305, MPV 10.4, Neut % (Auto) 74.7, Lymph % (Auto) 15.2, [place] % (Auto) 5.0, Eos % (Auto) 4.4, Baso % (Auto) 0.4, Neut # (Auto) 7.3, Lymph # (Auto) 1.5, [place] # (Auto) 0.5, Eos # (Auto) 0.4, Baso # (Auto) 0.0, Sodium 138, Potassium 4.2, Chloride 106, Carbon Dioxide 27, Anion Gap 9.2, BUN 11, Creatinine 1.00, Estimated Creat Clear 67, Estimated GFR 54 L, Est GFR ( Amer) 66, Glucose 106 H, Calcium 8.8, Phosphorus 3.2, Magnesium 1.8, Total Bilirubin 0.1 L, AST 27, ALT 21, Alkaline Phosphatase 86, Total Protein 7.4, Albumin 4.2, Globulin 3.2, Albumin/Globulin Ratio 1.3, Lipase 42 06/15/24 19:25: Urine Color Yellow, Urine Appearance Clear, Urine pH 6.0, Ur Specific [place] <= 1.005, Urine Protein Negative, Urine Glucose (UA) Negative, Urine Ketones Negative, Urine Blood Negative, Urine Nitrate Negative, Urine Bilirubin Negative, Urine Urobilinogen 0.2, Ur Leukocyte Esterase Negative, Urine RBC 3-5, Urine WBC 3-5, Ur Squamous Epith Cells 5-10, Urine Bacteria 1+ 06/15/24 17:49 06/15/24 17:49 Orders (Tests/Meds): ED MEDICATIONS Discontinued Medications Generic Name Dose Route Start Last Admin Trade Name Freq PRN Reason Stop Dose Admin Famotidine 20 mg 06/15/24 17:52 06/15/24 18:05 Famotidine 20mg/2ml Vial IV 06/15/24 17:53 20 mg ONCE ONE Administration Lactated Ringer's 1,000 mls @ 999 mls/hr 06/15/24 17:52 06/15/24 18:05 Lactated Ringer's 1000 Ml Bag IV 06/15/24 18:52 999 mls/hr .Q1H1M ONE Administration Ondansetron HCl 4 mg 06/15/24 17:52 06/15/24 18:05 Ondansetron 4mg/2ml Vial IV 06/15/24 17:53 4 mg ONCE ONE Administration Sodium Chloride 8 ml 06/15/24 17:52 Sodium Chloride 0.9% 10ml Vial IV 07/15/24 17:51 NEEDED PRN dilute pepcid ORDERS Category Date Time Status CBC w/Auto Diff [Complete Blood Count Auto Diff] Stat Lab 06/15/24 17:49 Completed CMP [Comprehensive Metabolic Panel] Stat Lab 06/15/24 17:49 Completed Diarrhea 23 Panel, PCR Stat Lab 06/15/24 17:42 Completed Lipase Stat Lab 06/15/24 17:49 Completed MAG [Magnesium] Stat Lab 06/15/24 17:49 Completed Occult Blood,Stool Stat Lab 06/15/24 17:42 Completed PHOS [Phosphorous] Stat Lab 06/15/24 17:49 Completed UA [Urinalysis and Microscopic] Stat Lab 06/15/24 19:25 Completed ECG Data Tracing #1: I reviewed this ECG and interpreted as documented below: Normal sinus rhythm with a ventricular to [address] changes concerning for STEMI. Normal intervals. ECG initial impression date: 06/15/24 ECG initial impression time: 17:43 Medical Decision Narrative: In summary, this patient is a 74-year-old female presenting to the Emergency Department for evaluation of nausea, vomiting, diarrhea for 2.5 weeks. She attributes this to being on Wegovy, but this is worse than her typical symptoms she experiences after administration of dosages. Differential diagnoses considered include but are not limited to viral gastroenteritis, bacterial gastroenteritis, colitis, diverticulitis, side effect of Wegovy, dehydration, GALI, electrolyte derangements. Ruling out the most morbid conditions drove assessment. It should be noted patient's history includes hypertension which is not at goal therapy. This complicates all aspects of care by increasing patient's risk for morbidity. I reviewed patient's past medical records and noted previous evaluations for general weakness and hypertensive urgency in the past. On exam, the patient is lying in bed in no acute distress. She has no localizable abdominal pain, no abdominal tenderness noted. Abdomen is soft and nondistended. Vitals are reassuring on cardiac telemetry. Workup included CBC, CMP, lipase, magnesium, phosphorus, urinalysis, diarrhea panel. she was given a bolus of IV fluids as well as IV Zofran and Pepcid. On reassessment, the patient is feeling a lot better. She states she feels a 9 times better after IV fluids and IV medications. She is able to tolerate oral intake. Labs are reassuring with reassuring CBC with no significant leukocytosis or anemia, chemistry is reassuring with normal kidney function and electrolytes. Urinalysis demonstrates some contamination with squamous cells, but is leukocyte esterase and nitrate negative so I do not feel she likely has a UTI. Diarrhea panel is negative. 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 It is possible this is a side effect of her GLP-1 medication. I feel she is now appropriate for discharge home with close follow-up with primary care. Strict return precautions were given as well as prescription for antiemetic Critical Care Critical Care Time Critical Care Time: No
[2024-06-15 17:55] LABS: Adenovirus F 40/41, stool Not Detected (NotDetected); Astrovirus Not Detected (NotDetected); Campylobacter Not Detected (NotDetected); Clostridium Difficile A/B, PCR Not Detected (NotDetected); Cryptosporidium Not Detected (NotDetected); Cyclospora Cayetanesis Not Detected (NotDetected); Entamoeba histolytica Not Detected (NotDetected); Enteroaggregative E coli Not Detected (NotDetected); Enteropathogenic E coli Not Detected (NotDetected); Enterotoxigenic E coli Not Detected (NotDetected); Giardia lamblia Not Detected (NotDetected); Norovirus Not Detected (NotDetected); Plesimonas Shigalloides, PCR Not Detected (NotDetected); Rotavirus A Not Detected (NotDetected); Salmonella, PCR Not Detected (NotDetected); Sapovirus Not Detected (NotDetected); Shiga-like toxin E coli Not Detected (NotDetected); Shigella Enterovasive E coli Not Detected (NotDetected); Vibrio Cholerae Not Detected (NotDetected); Vibrio, PCR Not Detected (NotDetected); Yersinia Entercolitica, PCR Not Detected (NotDetected)
--- NOTE | 2024-06-15 17:56 | PC.NURSE ---
Collected stool sample sent to lab
[2024-06-15 18:01] VITALS: BP 164/100; PULSE 70; O2SAT 98
[2024-06-15] MEDS: ONDANSETRON 4MG/2ML VIAL 4 MG IV (18:05)
[2024-06-15] MEDS: FAMOTIDINE 20MG/2ML VIAL 20 MG IV (18:05)
[2024-06-15] MEDS: LACTATED RINGERS 1000ML 1,000 ML 999 ML IV (18:05)
[2024-06-15 18:11] LABS: Basophils % 0.4 % (0.1-2.0); Eosinophils # 0.4 K/mm3 (0.0-0.4); Eosinophils % 4.4 % (0.1-12.0); Hematocrit 39.6 % (37.0-47.0); Hemoglobin 12.5 g/dL (12.2-16.2); Lymphocytes # 1.5 K/mm3 (0.7-4.5); Lymphocytes % 15.2 % (10-50); Mean Corpuscular HGB Conc 31.6 g/dL (31.8-35.4); Mean Corpuscular Hemoglobin 28.5 pg (27.0-31.2); Mean Corpuscular Volume 90.4 fl (81-99); Mean Platelet Volume 10.4 fl (7.4-10.4); Monocytes # 0.5 K/mm3 (0.1-1.0); Neutrophils # 7.3 K/mm3 (1.8-7.8); Neutrophils % 74.7 % (37.0-80.0); Platelet Count 305 K/mm3 (142-424); Red Blood Count 4.38 M/mm3 (4.20-5.40); Red Cell Distribution Width 12.7 % (11.5-17.5); White Blood Count 9.7 K/mm3 (4.8-10.8)
[2024-06-15 18:22] LABS: Albumin Level 4.2 g/dl (3.5-5.0)
[2024-06-15 18:23] LABS: Chloride 106 mmol/L (98-107); Potassium 4.2 mmoL/L (3.5-5.1); Sodium 138 mmol/L (136-145)
[2024-06-15 18:25] LABS: Alanine Aminotransferase 21 U/L (12-78); Aspartate Amino Transferase 27 U/L (14-36); Blood Urea Nitrogen 11 mg/dl (7-17); Creatinine Clearance Estimated 67 mL/min (50-200); Estimated Glomerular Filt Rate 54 ml/min (>60); GFR (African American) 66 ML/MIN (>60)
[2024-06-15 18:26] LABS: Albumin/Globulin Ratio 1.3 (1.1-1.8); Alkaline Phosphatase 86 U/L (38-126); Anion Gap 9.2 mEq/L (5-15); Calcium 8.8 mg/dl (8.4-10.2); Carbon Dioxide 27 mmol/L (22.0-30.0); Globulin 3.2 g/dL (1.3-3.2); Glucose 106 mg/dl (74-100); Lipase 42 U/L (23-300); Magnesium 1.8 mg/dl (1.6-2.3); Phosphorous 3.2 mg/dl (2.5-4.5); Total Protein,Serum 7.4 g/dl (6.3-8.2)
[2024-06-15 18:30] VITALS: BP 173/85; PULSE 66; O2SAT 95
[2024-06-15 18:31] LABS: Occult Blood,Stool Negative (Negative)
[2024-06-15 18:43] LABS: Bilirubin,Total 0.1 mg/dl (0.2-1.3)
[2024-06-15 18:45] VITALS: BP 173/85; PULSE 69; O2SAT 96
[2024-06-15 19:31] LABS: Microscopic, Urine URINE MICROSCOPIC (MICROSCOPIC)
[2024-06-15 19:44] LABS: Appearance,Urine CLEAR (Clear); Bilirubin,Urine Negative (Negative); Blood, Urine Negative (Negative); Color,Urine YELLOW (Yellow); Glucose,Urine (UA) Negative (Negative); Ketones,Urine Negative (Negative); Leukocyte Esterase,Urine Negative (Negative); Nitrate,Urine Negative (Negative); Protein,Urine Negative (Negative); Specific Gravity, Urine <= 1.005 (1.005-1.030); Urobilinogen,Urine 0.2 EU/dl (0.2)
[2024-06-15 20:12] VITALS: BP 171/88; PULSE 62; RESP 18; TEMP 36.7; O2SAT 98
[2024-06-15 20:49] LABS: Bacteria,Urine 1+ /lpf
== END 2024-06-15 20:14 | disposition home or self-care (01) ==
PROVIDERS: Emergency Provider Emergency Medicine; PCP Family Medicine
DX: R11.2 Nausea with vomiting, unspecified (principal); R19.7 Diarrhea, unspecified; R53.1 Weakness
CPT/HCPCS: 80053; 81001; 82272; 83690; 83735; 84100; 85025; 87507; 93005; 96361; 96374; 96375; 99284; G0328; J2405; J7120; S0028

== ENCOUNTER 2024-07-19 16:36 | Emergency (ER) | payer MEDICARE, SELFPAY ==
[2024-07-19] VITALS (11 sets, daily range): BP systolic 144–177; BP diastolic 67–85; PULSE 55–66; RESP 8–17; TEMP 36.4–37.1; O2SAT 94–97; BMI 29.9
--- NOTE | 2024-07-19 16:36 | ECG_ITS ---
APPROVED REPORT Exam: Resting ECG HR:53 bpm ECG Measurements Heart Rate 53 AXES ME 145 P 0 QRSd 92 QRS 23 QT 441 T 35 QTc 425 Conclusion SINUS BRADYCARDIA LOW QRS VOLTAGE IN PRECORDIAL LEADS [QRS DEFLECTION < 1.0 mV IN CHEST LEADS] BORDERLINE ECG Electronically signed by : HUSSEIN BAER, 07/20/2024 22:23:07
--- NOTE | 2024-07-19 16:39 | ED_ITS ---
<Statement entered by Hernan Savage MD - 07/19/24 20:17> INES Attestation I was consulted by the INES, and we discussed the complexity of problems being addressed. I approved the treatment and management plan for this patient's care in the emergency department, thus performing a substantial portion of the medical decision making. Hernan Savage MD Discharge Plan Disposition Patient Disposition: Xfer Other Condition: Good Prescriptions Prescriptions: No Action carvedilol 6.25 mg tablet 6.25 mg PO BID Rx Instructions: must administer with a meal/food budesonide-formoterol 160-4.5 mcg/actuation HFA aerosol inhaler 2 puff inhalation BID 90 Days Qty: 10.2 2RF atorvastatin 80 mg tablet 80 mg PO DAILY Patient Comments: TAKE 1 TABLET BY MOUTH ONCE DAILY clonidine HCl 0.1 mg tablet 0.1 mg PO DIRECTED Patient Comments: TAKE 1 TABLET BY MOUTH ONCE DAILY clopidogrel 75 mg tablet 75 mg PO DAILY Patient Comments: TAKE 1 TABLET BY MOUTH ONCE DAILY acyclovir 400 mg tablet 400 mg PO BID Patient Comments: TAKE 1 TABLET BY MOUTH TWICE DAILY valsartan 320 mg tablet 320 mg PO DAILY Patient Comments: TAKE 1 TABLET BY MOUTH ONCE DAILY folic acid 1 mg tablet 1 mg PO DAILY Patient Comments: TAKE 1 TABLET BY MOUTH ONCE DAILY montelukast 10 mg tablet 10 mg PO DAILY Patient Comments: TAKE 1 TABLET BY MOUTH ONCE DAILY IN THE EVENING clobetasol 0.05 % ointment 1 applic TOPICAL BID Patient Comments: APPLY OINTMENT TOPICALLY TO AFFECTED AREA TWICE DAILY FOR UP TO 2 WEEKS WHEN ITCHING. STOP FOR 1 WEEK. REPEAT NEEDED WHEN ITCHY albuterol sulfate 90 mcg/actuation HFA aerosol inhaler 1 - 2 puff INHALATION Q4-6H PRN (Reason: SOA, wheezing) Patient Comments: INHALE 1 TO 2 PUFFS BY MOUTH EVERY 4 TO 6 HOURS venlafaxine 225 mg tablet extended release 24hr 225 mg PO DAILY Patient Comments: TAKE 1 TABLET BY MOUTH DAILY Vraylar 1.5 mg capsule 1.5 mg PO DAILY Patient Comments: TAKE 1 CAPSULE BY MOUTH ONCE DAILY promethazine 25 mg tablet 25 mg PO Q6H PRN (Reason: nausea and vomiting) Qty: 14 0RF Referrals Follow up/Referrals: Provider,Referral, MD [Primary Care Provider] - See instructions Clinical Impressions Clinical Impression: Generalized weakness, Intracranial atherosclerosis Stand Alone Forms Stand Alone Forms: Transfer Record - ED Print Language Print Language: Malay Discharge ED Provider: Hernan Savage General Adult HPI General Chief complaint: Weakness Stated complaint: weakness Time Seen by Provider: 07/19/24 16:38 Mode of Arrival: Ambulatory Source of Information: Patient Limitations: No Limitations History of Present Illness HPI narrative: 74-year-old female presents to the emergency department for generalized weakness today and a near syncopal event/fall, patient states that around 3- 3:30 p.m. PM she arose from a sitting position was walking through her hallway , when she felt like her right leg gave out on me . She states that she fell to my knees and I was able to ease myself to the floor . Patient denies striking head, denies any LOC, denies any true syncopal event, no lightheadedness no dizziness no headache, no fever no chills no chest pain no shortness of breath, nausea no vomiting no constipation, does have some ongoing diarrhea, patient was recently taken off GLP-1 agonist for GI type of side effect, denies urinary type symptomatology, denies melena, denies hematochezia hematemesis or hemoptysis, denies any weight gain or weight loss recently, has a urinary type symptomatology. Patient had to have assistance getting up from the ground, with family, patient admits to globalized weakness and fatigue, GCS of 14, some difficulty with year. Other past medical history consistent with hyperlipidemia, anxiety/depression, patient is on dual antiplatelet therapy with Plavix and aspirin, for unknown reason, as well as hypertension. Initial triage vitals notable for bradycardia, SpO2 within normal limits, no tachypnea, pressure within normal limits patient's age, patient has no history of drug abuse, alcohol or tobacco abuse. Onset (ago): hour(s) Related Data Home Medications ?Medication ?Instructions ?Recorded ?Confirmed acyclovir 400 mg tablet 400 mg PO BID 11/12/23 02/09/24 albuterol sulfate 90 mcg/actuation 1 - 2 puff inhalation Q4-6H PRN 11/12/23 02/09/24 aerosol inhaler SOA, wheezing atorvastatin 80 mg tablet 80 mg PO DAILY 11/12/23 02/09/24 cariprazine 1.5 mg capsule 1.5 mg PO DAILY 11/12/23 02/09/24 (Vraylar) clobetasol 0.05 % topical ointment 1 applic topical BID 11/12/23 02/09/24 clonidine HCl 0.1 mg tablet 0.1 mg PO DIRECTED 11/12/23 02/09/24 clopidogrel 75 mg tablet 75 mg PO DAILY 11/12/23 02/09/24 folic acid 1 mg tablet 1 mg PO DAILY 11/12/23 02/09/24 montelukast 10 mg tablet 10 mg PO DAILY 11/12/23 02/09/24 valsartan 320 mg tablet 320 mg PO DAILY 11/12/23 02/09/24 venlafaxine 225 mg tablet,extended 225 mg PO DAILY 11/12/23 02/09/24 release 24 hr carvedilol 6.25 mg tablet 6.25 mg PO BID 02/09/24 02/09/24 Previous Rx's ?Medication ?Instructions ?Recorded budesonide-formoterol HFA 160 2 puff inhalation BID 90 days 02/09/24 mcg-4.5 mcg/actuation aerosol #10.2 grams inhaler promethazine 25 mg tablet 25 mg PO Q6H PRN nausea and 06/15/24 vomiting #14 tabs Allergies Allergy/AdvReac Type Severity Reaction Status Date / Time No Known Allergies Allergy Verified 02/09/24 14:21 [facility] Disclaimer: The information contained in this section may have been updated after the patient was seen, as this information can be updated by other users. Medical History History of 2019 novel coronavirus disease (COVID-19) Fatigue Wheezing without diagnosis of asthma Dyspnea on exertion Surgical History No history of previous surgery Family History Other Thyroid disorder Social History Smoking Status: Never smoker alcohol intake: never current occupational status: retired Travel in the last 8 weeks: None Have you lived/traveled outside [place] in past 30 days?: No Contact w/someone who lives/traveled outside US past 30 days?: No Exposure to someone with infectious disease in past 14 days?: No Do you have a fever (greater than 100.4 F or 38 C)?: No Have you tested positive for COVID-19: No Exposed to someone with COVID-19 in past 14 days?: No Do you have a sore throat?: No Do you have a cough?: No Do you have any weakness?: No Do you have any diarrhea?: No Are you experiencing any unusual bleeding?: No Do you have any muscle aches/pain?: No Do you have any abdominal pain?: No Are you experiencing loss of taste or smell?: No Other Medical History Have you received the Pneumonia Vaccine: Yes ROS Obtained: Yes All systems reviewed & no additional complaints except as documented Physical Exam General General appearance: alert, in no apparent distress and obese Head Head exam: atraumatic and normocephalic Eye Eye exam: Present PERRL and EOMI ENT ENT exam: Present mucous membranes moist Neck Neck exam: Present normal inspection Chest Chest inspection: Present normal inspection and symmetric chest wall rise Respiratory Respiratory exam: Present normal lung sounds bilaterally; Absent respiratory distress, wheezes or stridor Cardiovascular Cardiovascular exam: Present bradycardia Abdominal Exam Abdominal exam: Present soft; Absent tenderness, guarding, rebound or rigidity Extremities Exam Extremities exam: Present normal inspection Back Exam Back exam: Present normal inspection and full ROM; Absent tenderness, paraspinal tenderness or vertebral tenderness Comment: No step-offs or deformities, no C-spine T-spine L-spine paraspinal or spinal tenderness palpation, otherwise neurovascular intact, Neurological Exam Neurological exam: Present alert and other (GCS 14, some confusion with year and president, oriented to person and place as well as day, patient has some global weakness noted in the bilateral lower and upper extremities, no real gross focal sensation deficit noted, patient does have some minor limb drift when lifting the leg off the bed, no ); Absent oriented X3 Psychiatric Psychiatric exam: Present normal affect Skin Skin exam: Present warm and dry Medical Decision Making Medical Records Medical records reviewed: Yes I reviewed the patient's medical records. Screening: Per USPSTF and CDC recommendations, given the prevalence of disease in our region, it is our hospital?s policy to screen for HIV and viral Hepatitis for all patients aged 18 and over and those with ongoing risk factors. Ronny Inquiry Pt receiving controlled substance: No Ronny was queried for this patient: No Vital Signs: 07/19/24 16:38 07/19/24 16:38 07/19/24 17:00 Temperature 98.7 F Temperature Source Oral Pulse Rate 58 L 55 L Pulse Rate [Left Radial] 58 L Pulse Rate [Orthostatic Lying] Pulse Rate [Orthostatic Sitting] Respiratory Rate 17 14 12 Blood Pressure 144/67 H 147/69 H Blood Pressure [Orthostatic Lying] Blood Pressure [Orthostatic Sitting] Blood Pressure [Right Arm] 144/67 H Blood Pressure Mean [Right Arm] 92 Blood Pressure Source [Right Arm] Automatic Cuff Blood Pressure Position [Right Arm] Sitting 02 Sat by Pulse Oximetry 97 94 L 94 L Oxygen Delivery Method Room Air Room Air Room Air 07/19/24 17:03 07/19/24 17:50 07/19/24 17:51 Temperature Temperature Source Pulse Rate 63 63 Pulse Rate [Left Radial] Pulse Rate [Orthostatic Lying] 65 Pulse Rate [Orthostatic Sitting] 66 Respiratory Rate 12 16 Blood Pressure 147/68 H 159/80 H Blood Pressure [Orthostatic Lying] 147/68 H Blood Pressure [Orthostatic Sitting] 159/80 H Blood Pressure [Right Arm] Blood Pressure Mean [Right Arm] Blood Pressure Source [Right Arm] Blood Pressure Position [Right Arm] 02 Sat by Pulse Oximetry 96 96 Oxygen Delivery Method Room Air Room Air 07/19/24 18:00 07/19/24 18:30 07/19/24 19:01 Temperature Temperature Source Pulse Rate 63 55 L Pulse Rate [Left Radial] Pulse Rate [Orthostatic Lying] Pulse Rate [Orthostatic Sitting] Respiratory Rate 14 12 8 L Blood Pressure 159/71 H 157/74 H 177/85 H Blood Pressure [Orthostatic Lying] Blood Pressure [Orthostatic Sitting] Blood Pressure [Right Arm] Blood Pressure Mean [Right Arm] Blood Pressure Source [Right Arm] Blood Pressure Position [Right Arm] 02 Sat by Pulse Oximetry 96 95 Oxygen Delivery Method Room Air Room Air 07/19/24 19:30 Temperature Temperature Source Pulse Rate 57 L Pulse Rate [Left Radial] Pulse Rate [Orthostatic Lying] Pulse Rate [Orthostatic Sitting] Respiratory Rate 16 Blood Pressure 158/80 H Blood Pressure [Orthostatic Lying] Blood Pressure [Orthostatic Sitting] Blood Pressure [Right Arm] Blood Pressure Mean [Right Arm] Blood Pressure Source [Right Arm] Blood Pressure Position [Right Arm] 02 Sat by Pulse Oximetry 95 Oxygen Delivery Method Room Air Lab Data Lab results reviewed: Yes I reviewed the patient's lab results. Lab Results 07/19/24 16:39: POC Glucose 103 07/19/24 16:45: WBC 5.0, RBC 4.15 L, Hgb 12.0 L, Hct 38.1, MCV 91.8, MCH 28.9, M CHC 31.5 L, RDW 13.5, Plt Count 303, MPV 10.2, Neut % (Auto) 55.1, Lymph % (Auto) 30.3, Tate % (Auto) 8.8, Eos % (Auto) 5.0, Baso % (Auto) 0.6, Neut # (Auto) 2.7, Lymph # (Auto) 1.5, Tate # (Auto) 0.4, Eos # (Auto) 0.3, Baso # (Auto) 0.0, PT 9.9 L, INR 0.87 L, APTT 24.5, Sodium 140, Potassium 4.0, Chloride 104, Carbon Dioxide 29, Anion Gap 11.0, BUN 17, Creatinine 1.20 H, Estimated Creat Clear 54, Estimated GFR 44 L, Est GFR ( Amer) 53 L, Glucose 114 H, Lactate 1.3, Calcium 8.4, Magnesium 1.8, Total Bilirubin 0.4, AST 34, ALT 30, Alkaline Phosphatase 76, Troponin I < 0.01, NT-Pro-B Natriuret Pep 57.2, Total Protein 7.1, Albumin 3.9, Globulin 3.2, Albumin/Globulin Ratio 1.2 07/19/24 19:07: Urine Color Yellow, Urine Appearance Clear, Urine pH 6.0, Ur Specific Gillett <= 1.005, Urine Protein Negative, Urine Glucose (UA) Negative, Urine Ketones Negative, Urine Blood Negative, Urine Nitrate Negative, Urine Bilirubin Negative, Urine Urobilinogen 0.2, Ur Leukocyte Esterase Negative 07/19/24 16:45 07/19/24 16:45 Orders (Tests/Meds): ED MEDICATIONS Discontinued Medications Generic Name Dose Route Start Last Admin Trade Name Freq PRN Reason Stop Dose Admin Lactated Ringer's 1,000 mls @ 999 mls/hr 07/19/24 17:20 07/19/24 17:42 Lactated Ringer's 1000 Ml Bag IV 07/19/24 18:20 999 mls/hr .Q1H1M ONE Administration Iopamidol 150 ml 07/19/24 17:32 07/19/24 17:33 Iopamidol-370 (76%);100ml Bottle IV 07/19/24 17:33 150 ml ONCE ONE Administration Sodium Chloride 10 ml 07/19/24 17:32 07/19/24 17:33 Sodium Chloride 0.9% 10ml Syr (Rad Only) IV 07/19/24 17:33 10 ml ONCE ONE Administration Sodium Chloride 100 ml 07/19/24 17:32 07/19/24 17:33 0.9 % Sodium Chloride 50 Ml Vial IV 07/19/24 17:33 100 ml ONCE ONE Administration ORDERS Category Date Time Status CT angio chest PE protocol Stat Cat Scan 07/19/24 16:[address] angio head Stat Cat Scan 07/19/24 16:[address] angio neck Stat Cat Scan 07/19/24 16:[address] head/brain wo con Stat Cat Scan 07/19/24 16:51 Completed Pelvis XR 1-2 views [XR pelvis 1-2V] Stat Exams 07/19/24 16:51 Completed XR chest portable Stat Exams 07/19/24 16:51 Completed Complete Blood Count Auto Diff Stat Lab 07/19/24 16:45 Completed Comprehensive Metabolic Panel Stat Lab 07/19/24 16:45 Completed Lactic Acid Stat Lab 07/19/24 16:45 Completed Magnesium Stat Lab 07/19/24 16:45 Completed NT Pro Brain Natriuretic Pep. Stat Lab 07/19/24 16:45 Completed POC Glucose,Bedside Routine Lab 07/19/24 16:39 Completed PT INR [Prothrombin Time INR] Stat Lab 07/19/24 16:45 Completed PTT [Activated Partial Thrombo Time] Stat Lab 07/19/24 16:45 Completed Troponin I Q3H Lab 07/19/24 19:45 Ordered Troponin I Q3H Lab 07/19/24 22:45 Ordered Troponin I Stat Lab 07/19/24 16:45 Completed Urinalysis and Microscopic Stat Lab 07/19/24 19:07 Results Medical Decision Narrative: 74-year-old female presents the emergency department with generalized weakness and near syncope/fall, differential diagnose include but not limited to cardiac arrhythmia, electrolyte disturbance, orthostatic hypotension, TIA/CVA, PE, hypovolemia, acute UTI, vasovagal syncope, cardiogenic syncope, situational syncope among others. I discussed patient's case with attending physician he saw and examined the patient as well. Obtain basic laboratory studies, lactic level, magnesium level proBNP PT/INR, PTT, troponin, urinalysis, EKG, x-ray of the chest, x-ray of the pelvis, CT head without contrast, CTA head and neck with and without contrast, CTA chest with without contrast PE protocol, obtain orthostatic vital signs, and will give 1 L LR IV. CBC is unremarkable CMP is notable for elevated creatinine 1.2, POC glucose within normal limit Magnesium level within normal limit PT is 9.9, INR 0.87, PTT within normal limits I reviewed the patient's CTA chest with and without contrast PE protocol, no CT evidence for pulmonary embolism no acute infiltrates. I viewed the patient's CT head without contrast along the corresponding radiologic report no acute intracranial findings, similar pattern of hypodensities in the cerebral white matter redemonstrated chronic right occipital lobe infarct. I reviewed the patient's chest x-ray and pelvic x-ray along with corresponding radiological reports, no acute findings. Reexamination of the patient at approximately 6:00 PM, patient had complete resolution of her symptoms. Is moving extremities to command, no weakness noted, 5-5 strength in bilateral lower and upper extremities, no limb drift and no limb ataxia in the bilateral lower and upper extremities, global weakness that was previously noted upon arrival has resolved. I reviewed the patient's CTA head and neck with and without contrast along the corresponding radiologic report, also discussed this with the on-call radiologist via phone at approximately 6:35 PM. 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 Initial NIH score was then calculated by attending physician and I to be 10 with the bilateral upper and lower extremity weakness that hit bed and with some ataxia, currently at the bedside NIH of 0 patient's symptoms are completely resolved within her time in the emergency department. However, still willl reach out to [facility] neurology for these findings/clinical exam for consultation. Unfortunately, [facility] neurology taking some time to respond after pages initially put out at approximately 6:38 PM. Will reach out to [facility] neurology team. I was able to speak with Ekaterina Pham APRN at approximately 7:20 PM, she excepted the patient for transfer on behalf of hospitalist, with neurology consultation for the TIA/stroke workup with MRI brain,, still in the differential could be cerebral hypoperfusion per neurology nurse practitioner as blood pressure was 130-140 systolic on arrival, and patient did go from a sitting to standing position at approximately 3 PM, which is when her near fall occurred. Discussed need for transfer/admission to [facility] with patient and family the bedside patient and family agree with current treatment plan/transfer plan. Will call for ambulance transport. Awaiting bed assignment from [facility]. Urinalysis is negative for nitrites, negative for leukocyte esterase. I discussed patient case with attending physician Dr. Savage at shift change, disposition is pending transfer to [facility] for higher level of care/neurology. Critical Care Critical Care Time Critical Care Time: No
[2024-07-19 16:46] LABS: POC Glucose,Bedside 103 (70-110)
--- NOTE | 2024-07-19 16:51 | XR_ITS ---
PROCEDURE INFORMATION: Exam: XR Chest Exam date and time: 07/19/2024 5:38 PM Age: 74 years old Clinical indication: Injury or trauma; Fall; Blunt trauma (contusions or hematomas) TECHNIQUE: Imaging protocol: Radiologic exam of the chest. Views: 1 view. COMPARISON: CT ANGIO CHEST PE PROTOCOL 07/19/2024 5:31 PM FINDINGS: Lungs: Unremarkable. No consolidation. Pleural spaces: Unremarkable. No pleural effusion. No pneumothorax. Heart/Mediastinum: Unremarkable. No cardiomegaly. Bones/joints: Unremarkable. IMPRESSION: No acute findings.
--- NOTE | 2024-07-19 16:51 | CT_ITS ---
PROCEDURE INFORMATION: Exam: CT Head Without Contrast Exam date and time: 07/19/2024 5:25 PM Age: 74 years old Clinical indication: Injury or trauma; Fall; Blunt trauma (contusions or hematomas); Additional info: Fall, head trauma TECHNIQUE: Imaging protocol: Computed tomography of the head without contrast. Radiation optimization: All CT scans at this facility use at least one of these dose optimization techniques: automated exposure control; mA and/or kV adjustment per patient size (includes targeted exams where dose is matched to clinical indication); or iterative reconstruction. COMPARISON: CT HEAD/BRAIN WO CON 11/12/2023 6:55 PM FINDINGS: Brain: No acute intracranial hemorrhage, midline shift, or mass effect. Similar pattern of hypodensities within the cerebral white matter. Redemonstrated chronic right occipital lobe infarct. Cerebral ventricles: Stably ex vacuo dilatation of the right lateral ventricle occipital horn. Paranasal sinuses: Trace left maxillary sinus mucosal thickening. Mastoid air cells: Visualized mastoid air cells are well aerated. Bones: Unremarkable. No acute fracture. Soft tissues: Unremarkable. IMPRESSION: No acute intracranial findings.
--- NOTE | 2024-07-19 16:51 | XR_ITS ---
PROCEDURE INFORMATION: Exam: XR Pelvis Exam date and time: 07/19/2024 5:38 PM Age: 74 years old Clinical indication: Injury or trauma; Fall; Blunt trauma (contusions or hematomas); Bilateral; Pelvic region TECHNIQUE: Imaging protocol: Radiologic exam of the pelvis. Views: 1 or 2 view. COMPARISON: No relevant prior studies available. FINDINGS: Bones/joints: Unremarkable. No acute fracture. Soft tissues: Unremarkable. Organs: Retained contrast material within the bladder lumen noted. IMPRESSION: No acute findings.
--- NOTE | 2024-07-19 16:51 | CT_ITS ---
PROCEDURE INFORMATION: Exam: CTA Head With Contrast, Arteriography Exam date and time: 07/19/2024 5:27 PM Age: 74 years old Clinical indication: Injury or trauma and condition or disease; Fall; Blunt trauma; Head; Other: Weakness TECHNIQUE: Imaging protocol: Computed tomographic angiography of the head with contrast. Exam focused on the arteries. 3D rendering (Not supervised by radiologist): MIP and/or 3D reconstructed images were created by the technologist. Radiation optimization: All CT scans at this facility use at least one of these dose optimization techniques: automated exposure control; mA and/or kV adjustment per patient size (includes targeted exams where dose is matched to clinical indication); or iterative reconstruction. Contrast material: ISOVUE 370; Contrast volume: 80 ml; Contrast route: INTRAVENOUS (IV); COMPARISON: CT HEAD/BRAIN WO CON 07/19/2024 5:25 PM FINDINGS: ANTERIOR CIRCULATION: Right internal carotid artery: Mild atherosclerotic narrowing of the intracranial segment without flow-limiting stenosis. No aneurysm. Right middle cerebral artery: No occlusion or significant stenosis. No aneurysm. Right anterior cerebral artery: No occlusion or significant stenosis. No aneurysm. Left internal carotid artery: Mild atherosclerotic narrowing of the intracranial segment without flow-limiting stenosis. No aneurysm. Left middle cerebral artery: No occlusion or significant stenosis. No aneurysm. Left anterior cerebral artery: Severe focal stenosis of the left anterior cerebral artery mid A2 segment. 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 Left vertebral artery: No occlusion or significant stenosis. No aneurysm. Basilar artery: No occlusion or significant stenosis. No aneurysm. Right posterior cerebral artery: No occlusion or significant stenosis. No aneurysm. Left posterior cerebral artery: No occlusion or significant stenosis. No aneurysm. Brain: No definite mass, mass effect, or midline shift. Cerebral ventricles: No ventriculomegaly. Bones/joints: Degenerative changes. No acute fracture. Soft tissues: Unremarkable. IMPRESSION: 1. Severe focal stenosis of the left anterior cerebral artery mid A2 segment. 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 2. 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 PROCEDURE INFORMATION: Exam: CTA Neck With Contrast Exam date and time: 07/19/2024 5:27 PM Age: 74 years old Clinical indication: Injury or trauma and condition or disease; Fall; Blunt trauma; Head; Other: Weakness TECHNIQUE: Imaging protocol: Computed tomographic angiography of the neck with contrast. Exam focused on the cervical segments of the vasculature. 3D rendering (Not supervised by radiologist): MIP and/or 3D reconstructed images were created by the technologist. Radiation optimization: All CT scans at this facility use at least one of these dose optimization techniques: automated exposure control; mA and/or kV adjustment per patient size (includes targeted exams where dose is matched to clinical indication); or iterative reconstruction. Contrast material: ISOVUE 370; Contrast volume: 70 ml; Contrast route: INTRAVENOUS (IV); COMPARISON: CT HEAD/BRAIN WO CON 07/19/2024 5:25 PM FINDINGS: Right common carotid artery: Mild atherosclerotic narrowing of the carotid bulb without flow-limiting stenosis. No dissection or occlusion. Right internal carotid artery: Mild stenosis of the proximal cervical segment. No dissection or occlusion. Right external carotid artery: No occlusion or stenosis of the origin. Left common carotid artery: Mild atherosclerotic narrowing of the carotid bulb without flow-limiting stenosis. No dissection or occlusion. Left internal carotid artery: No stenosis of the extracranial segment. No dissection or occlusion. Left external carotid artery: No occlusion or stenosis of the origin. 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 Left vertebral artery: No stenosis. No dissection or occlusion. Soft tissues: Normal. No significant soft tissue swelling. Bones/joints: No acute fracture. IMPRESSION: 1. 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 2. Mild right internal carotid artery proximal cervical segment stenosis. REFERENCES: NASCET CRITERIA. The degree of stenosis in the cervical segment of the internal carotid artery is based on NASCET criteria. Normal is no stenosis. Mild is less than 50% stenosis. Moderate is 50-69% stenosis. Severe is 70% to 99% stenosis. Total occlusion is no detectable patent lumen.
[2024-07-19 16:54] LABS: Basophils % 0.6 % (0.1-2.0); Eosinophils # 0.3 Kmm3 (0.0-0.4); Hematocrit 38.1 % (37.0-47.0); Lymphocytes # 1.5 K/mm3 (0.7-4.5); Lymphocytes % 30.3 % (10-50); Mean Corpuscular HGB Conc 31.5 g/dL (31.8-35.4); Mean Corpuscular Hemoglobin 28.9 pg (27.0-31.2); Mean Corpuscular Volume 91.8 fl (81-99); Mean Platelet Volume 10.2 fl (7.4-10.4); Monocytes # 0.4 K/mm3 (0.1-1.0); Monocytes % 8.8 % (1.7-9.3); Neutrophils # 2.7 K/mm3 (1.8-7.8); Neutrophils % 55.1 % (37.0-80.0); Nucleated Red Blood Cells # 0 10^3/uL; Nucleated Red Blood Cells % 0 %; Platelet Count 303 K/mm3 (142-424); Red Blood Count 4.15 M/mm3 (4.20-5.40); Red Cell Distribution Width 13.5 % (11.5-17.5); Red Cell Distribution Width-SD 45.8 fL
--- NOTE | 2024-07-19 16:57 | CT_ITS ---
PROCEDURE INFORMATION: Exam: CTA Chest With Contrast Exam date and time: 07/19/2024 5:31 PM Age: 74 years old Clinical indication: Other: Syncope; Additional info: Near syncope TECHNIQUE: Imaging protocol: Computed tomographic angiography of the chest with contrast. Exam focused on the arteries. 3D rendering (Not supervised by radiologist): MIP and/or 3D reconstructed images were created by the technologist. Radiation optimization: All CT scans at this facility use at least one of these dose optimization techniques: automated exposure control; mA and/or kV adjustment per patient size (includes targeted exams where dose is matched to clinical indication); or iterative reconstruction. Contrast material: ISOVUE 370; Contrast volume: 70 ml; Contrast route: INTRAVENOUS (IV); COMPARISON: CR XR CHEST PORTABLE 02/17/2024 8:39 AM FINDINGS: Pulmonary arteries: No CT evidence for pulmonary embolism. Aorta: Unremarkable. No aortic aneurysm. No aortic dissection. Lungs: No acute infiltrates.. Pleural spaces: Unremarkable. No pneumothorax. No pleural effusion. Heart: Unremarkable. No cardiomegaly. No pericardial effusion. Lymph nodes: Unremarkable. No enlarged lymph nodes. Liver: Low-attenuation lesion liver dome either cyst or hemangioma. Bones/joints: Unremarkable. No acute fracture. Soft tissues: Unremarkable. IMPRESSION: 1. No CT evidence for pulmonary embolism. 2. No acute infiltrates..
[2024-07-19 17:04] LABS: Chloride 104 mmol/L (98-107)
[2024-07-19 17:05] LABS: Albumin Level 3.9 g/dl (3.5-5.0); Sodium 140 mmol/L (136-145)
[2024-07-19 17:07] LABS: Alanine Aminotransferase 30 U/L (12-78); Aspartate Amino Transferase 34 U/L (14-36); Blood Urea Nitrogen 17 mg/dl (7-17); Carbon Dioxide 29 mmol/L (22.0-30.0); Creatinine Clearance Estimated 54 mL/min (50-200); Estimated Glomerular Filt Rate 44 ml/min (>60); GFR (African American) 53 ML/MIN (>60); INR 0.87 (0.9-1.1); Lactic Acid 1.3 mmol/L (0.7-2.1); Magnesium 1.8 mg/dl (1.6-2.3); Prothrombin Time 9.9 seconds (10.1-12.5)
[2024-07-19 17:08] LABS: Albumin/Globulin Ratio 1.2 (1.1-1.8); Alkaline Phosphatase 76 U/L (38-126); Bilirubin,Total 0.4 mg/dl (0.2-1.3); Calcium 8.4 mg/dl (8.4-10.2); Globulin 3.2 g/dL (1.3-3.2); Glucose 114 mg/dl (74-100); Total Protein,Serum 7.1 g/dl (6.3-8.2)
[2024-07-19 17:13] LABS: Activated Partial Thrombo Time 24.5 seconds (22.8-30.6)
[2024-07-19 17:18] LABS: NT Pro Brain Natriuretic Pep. 57.2 pg/mL (0-125)
[2024-07-19 17:23] LABS: Troponin I < 0.01 ng/ml (0.00-0.034)
[2024-07-19] MEDS: SODIUM CHLORIDE 0.9% 10ML SYR (RAD ONLY) 10 ML IV (17:33)
[2024-07-19] MEDS: 0.9 % SODIUM CHLORIDE 50 ML VIAL 100 ML IV (17:33)
[2024-07-19] MEDS: IOPAMIDOL-370 (76%);100ML BOTTLE 150 ML IV (17:33)
[2024-07-19] MEDS: LACTATED RINGERS 1000ML 1,000 ML 999 ML IV (17:42)
--- NOTE | 2024-07-19 17:42 | PC.NURSE ---
RAD at bedside
--- NOTE | 2024-07-19 18:33 | PC.NURSE ---
[facility] on phone with milady galicia
--- NOTE | 2024-07-19 18:45 | PC.NURSE ---
called [facility] for consult with Minh for occlusion
--- NOTE | 2024-07-19 19:13 | PC.NURSE ---
images shared to J[facility] via [employer]
[2024-07-19 19:15] LABS: Microscopic, Urine URINE MICROSCOPIC (MICROSCOPIC)
--- NOTE | 2024-07-19 19:18 | PC.NURSE ---
[facility] called for neuro consult.
[2024-07-19 19:21] LABS: Appearance,Urine CLEAR (Clear); Bilirubin,Urine Negative (Negative); Blood, Urine Negative (Negative); Color,Urine YELLOW (Yellow); Glucose,Urine (UA) Negative (Negative); Ketones,Urine Negative (Negative); Leukocyte Esterase,Urine Negative (Negative); Nitrate,Urine Negative (Negative); Protein,Urine Negative (Negative); Specific Gravity, Urine <= 1.005 (1.005-1.030); Urobilinogen,Urine 0.2 EU/dl (0.2)
[2024-07-19 20:23] LABS: Bacteria,Urine 2+ /lpf; Squamous Epithelial Cell,Urine Occasional #/hpf (0-5)
[2024-07-19 21:22] LABS: Troponin I < 0.01 ng/ml (0.00-0.034)
--- NOTE | 2024-07-19 22:36 | PC.NURSE ---
report given to [facility] crew.
--- NOTE | 2024-07-23 14:14 | PC.NURSE ---
URINE CULTURE DISCUSSED WITH DR SOFIA. SPOKE WITH PT AND NOTIFIED OF ABX CALLED IN TO [facility] PER PT REQUEST
== END 2024-07-19 22:39 | disposition other institution (70) ==
PROVIDERS: Physician Assistant; Emergency Provider Student in an Organized Health Care Education/Training Program
DX: I67.2 Cerebral atherosclerosis (principal); R00.1 Bradycardia, unspecified; R53.1 Weakness; R53.83 Other fatigue; I10 Essential (primary) hypertension
CPT/HCPCS: 70450; 70496; 70498; 71045; 71275; 72170; 80053; 81001; 82962; 83605; 83735; 83880; 84484; 85025; 85610; 85730; 87086; 87088; 87186; 93005; 96360; 99285; J7120; Q9967

== ENCOUNTER 2024-07-29 11:22 | Outpatient (CLI) | payer MEDICARE, SELFPAY ==
--- NOTE | 2024-07-29 11:39 | CA_ITS ---
FINAL REPORT TECHNIQUE: Graded compression, spectral analysis and ultrasound images of the venous system of the right upper extremity were obtained. CLINICAL HISTORY: right elbow pain FINDINGS: The jugular vein, subclavian vein, axillary vein, brachial vein, cephalic vein and basilic venous system are fully compressible and demonstrate no evidence of thrombosis. IMPRESSION: No evidence of thrombosis of the venous system of the right upper extremity. Reviewed, Interpreted and Dictated by Flavio Trimble MD Transcribed by Cece Alvarez Authenticated and [facility]
== END 2024-07-29 23:59 | disposition home or self-care (01) ==
PROVIDERS: Visit Provider Emergency Medicine
DX: M79.621 Pain in right upper arm (principal); R22.31 Localized swelling, mass and lump, right upper limb; Z03.89 Encounter for observation for other suspected diseases and conditions ruled out
CPT/HCPCS: 93971